=== PATIENT | female | born 1965 | race African-American/Black ===

== ENCOUNTER 2016-02-11 18:28 | Emergency (ER) | payer OTHER ==
[~2016-02-11 18:28] MED LIST: ACET325T9 PO; ANTIDEPRESSANT; CITA20TA9 PO; DICL100T PO; HYDR-2666 PO; HYDR25CA75 PO; HYDR25TA PO; HYDR25TA9 PO; IBUP200T58 PO; LEVE500T56 PO; LISI10TA2 PO; LOPRESSOR; LORA10TA3 PO; PANT40TA5 PO; RISP3TAB3 PO; TRAZ150T55 PO; ZIPR20CA2 PO
[2016-02-11 19:46] VITALS: BP 181/93
[2016-02-11] MEDS ORDERED: ASPIRIN 325 MG TABLET PO ONE (20:15)
--- NOTE | 2016-02-11 20:15 | PHYS DOC ---
Past Medical History Past Medical History: Anxiety, Bipolar, CHF, Hypertension, Schizophrenia Additional Past Medical Histor: schitzophrenia Past Surgical History: Hysterectomy Alcohol Use: None Drug Use: None Adult General Chief Complaint Chief Complaint: LOWER EXT PAIN HPI HPI Patient is a 50 year old female presents the emergency department today with complaint of chest pain that began earlier today as well as ankle swelling. Patient reports that the chest pain is primarily exertional in nature. She denies shortness of breath. She denies radiation of pain. She reports some nausea without vomiting with the chest pain. Patient is unsure as to whether she has a history of heart disease or not. She does have an established history of hypertension. She does report primary relatives in the family with a history of heart disease at the age of 50. Patient does not have a primary care doctor. Patient does have an established history of schizophrenia. Patient does not present as a reliable source of history. Review of Systems Review of Systems Constitutional: Denies fever or chills [] Eyes: Denies change in visual acuity, redness, or eye pain [] HENT: Denies nasal congestion or sore throat [] Respiratory: Denies cough or shortness of breath [] Cardiovascular: No additional information not addressed in HPI [] GI: Denies abdominal pain, nausea, vomiting, bloody stools or diarrhea [] : Denies dysuria or hematuria [] Musculoskeletal: Denies back pain or joint pain [] Integument: Denies rash or skin lesions [] Neurologic: Denies headache, focal weakness or sensory changes [] Endocrine: Denies polyuria or polydipsia [] Current Medications Current Medications Current Medications Medications (Trade) Dose Ordered Sig/[facility] Start Time Stop Time Status Last Admin Dose Admin Aspirin (Rosita Aspirin) 325 mg 1X ONCE 02/11/16 20:15 02/11/16 20:24 DC 02/11/16 21:06 325 MG Magnesium Oxide (Magnesium Oxide) 400 mg 1X ONCE 02/11/16 22:00 02/11/16 22:01 DC 02/11/16 21:59 400 MG Potassium Chloride (Klor-Con) 40 meq 1X ONCE 02/11/16 22:00 02/11/16 22:01 DC 02/11/16 21:58 40 MEQ Allergies Allergies Allergies Coded Allergies Type Severity Reaction Last Updated Verified No Known Drug Allergies 12/31/15 No Physical Exam Physical Exam Constitutional: Well developed, well nourished, no acute distress, non-toxic appearance. [] HENT: Normocephalic, atraumatic, bilateral external ears normal, oropharynx moist, no oral exudates, nose normal. [] Eyes: PERRLA, EOMI, conjunctiva normal, no discharge. [] Neck: Normal range of motion, no tenderness, supple, no stridor. [] Cardiovascular:Heart rate regular rhythm, no murmur [] Lungs & Thorax: Bilateral breath sounds clear to auscultation [] Abdomen: Bowel sounds normal, soft, no tenderness, no masses, no pulsatile masses. [] Skin: Warm, dry, no erythema, no rash. [] Back: No tenderness, no CVA tenderness. [] Extremities: No tenderness, no cyanosis, no clubbing, ROM intact, no edema. [] Neurologic: Alert and oriented X 3, normal motor function, normal sensory function, no focal deficits noted. [] Psychologic: Affect normal, judgement normal, mood normal. [] Current Patient Data Vital Signs Vital Signs Date Time Temp Pulse Resp B/P Pulse Ox O2 Delivery O2 Flow Rate FiO2 02/11/16 19:46 97.8 63 20 98 Room Air 97.8 Lab Values Laboratory Tests Test 02/11/16 20:45 White Blood Count 4.0x10^3/uL (4.0-11.0) Red Blood Count 4.42x10^6/uL (3.50-5.40) Hemoglobin 12.0g/dL (12.0-15.5) Hematocrit 37.7% (36.0-47.0) Mean Corpuscular Volume 85fL (79-100) Mean Corpuscular Hemoglobin 27pg (25-35) Mean Corpuscular Hemoglobin Concent 32g/dL (31-37) Red Cell Distribution Width 14.5% (11.5-14.5) Platelet Count 182x10^3/uL (140-400) Neutrophils (%) (Auto) 49% (31-73) Lymphocytes (%) (Auto) 40% (24-48) Monocytes (%) (Auto) 9% (0-9) Eosinophils (%) (Auto) 1% (0-3) Basophils (%) (Auto) 1% (0-3) Neutrophils # (Auto) 1.9x10^3uL (1.8-7.7) Lymphocytes # (Auto) 1.6x10^3/uL (1.0-4.8) Monocytes # (Auto) 0.4x10^3/uL (0.0-1.1) Eosinophils # (Auto) 0.0x10^3/uL (0.0-0.7) Basophils # (Auto) 0.0x10^3/uL (0.0-0.2) Prothrombin Time 14.8SEC (11.7-14.0) H Prothrombin Time INR 1.2 (0.8-1.1) H Sodium Level 133mmol/L (136-145) L Potassium Level 3.3mmol/L (3.5-5.1) L Chloride Level 97mmol/L (98-107) L Carbon Dioxide Level 27mmol/L (21-32) Anion Gap 9 (6-14) Blood Urea Nitrogen 5mg/dL (7-20) L Creatinine 0.8mg/dL (0.6-1.0) Estimated GFR (Cockcroft-Gault) 92.6 Glucose Level 98mg/dL (70-99) Calcium Level 9.0mg/dL (8.5-10.1) Magnesium Level 1.4mg/dL (1.8-2.4) L Total Bilirubin 0.6mg/dL (0.2-1.0) Direct Bilirubin 0.3mg/dL (0.0-0.2) H Aspartate Amino Transferase (AST) 23U/L (15-37) Alanine Aminotransferase (ALT) 28U/L (14-59) Alkaline Phosphatase 92U/L (46-116) Creatine Kinase 87U/L (26-192) Creatine Kinase MB (Mass) 1.6ng/mL (0.0-3.6) Creatine Kinase MB Relative Index 1.8% (0-4) Troponin I Quantitative < 0.017ng/mL (0.000-0.055) CZ-Ddv-S-Type Natriuretic Peptide 117pg/mL (0-124) Total Protein 7.3g/dL (6.4-8.2) Albumin 3.8g/dL (3.4-5.0) Lipase 223U/L (73-393) Laboratory Tests 02/11/16 20:45 Laboratory Tests 02/11/16 20:45 EKG EKG EKG (my read): sinus rhythm, rate 62, borderline LAD, intervals wnl, no acute ischemic changes Radiology/Procedures Radiology/Procedures CXR (my read): No acute abnormality Course & Med Decision Making Course & Med Decision Making Based on patient's history of schizophrenia, as well as a history of hypertension, her age and the ethnicity, she presents at higher risk of ACS. Discharge nurse has been informed of this and patient will be moved to the acute side of the emergency department. Patient seen and examined with MARLON Francois. In brief, this is a 50 year old female who presents with LE pain and atypical chest pain. Low suspicion for ACS , however will check EKG, CXR, labs. EKG and CXR ok per my read. Labs notable for multiple minor electrolyte abnormalities; oral potassium and magnesium replacement ordered. Troponin wnl; given duration of chest pain, this is sufficient to r/o NV. Discussed results with patient and son; patient feeling better at this time. Discussed importance of following up with PCP. Patient discharged home with instructions for follow up, return precautions. Dragon Disclaimer Dragon Disclaimer This electronic medical record was generated, in whole or in part, using a voice recognition dictation system. Departure Departure Impression: Primary Impression: Chest pain Disposition: HOME, SELF-CARE Condition: IMPROVED Referrals: NO PCP (PCP) CLAYTON FRANCOIS Feb 11, 2016 20:15 ABHI GIFFORD MD Feb 12, 2016 01:21
[2016-02-11 20:56] LABS: BASO % 1 % (0-3); EOS % 1 % (0-3); HEMATOCRIT 37.7 % (36.0-47.0); LYMPH # 1.6 x10^3/uL (1.0-4.8); LYMPH % 40 % (24-48); MEAN CORPUSCULAR HEMOGLOBIN 27 pg (25-35); MEAN CORPUSCULAR HGB CONC 32 g/dL (31-37); MEAN CORPUSCULAR VOLUME 85 fL (79-100); MONO % 9 % (0-9); NEUT % 49 % (31-73); PLATELET COUNT 182 x10^3/uL (140-400); RED BLOOD COUNT 4.42 x10^6/uL (3.50-5.40); RED CELL DISTRIBUTION WIDTH 14.5 % (11.5-14.5)
[2016-02-11 21:05] LABS: INR 1.2 (0.8-1.1); PROTHROMBIN TIME PATIENT 14.8 SEC (11.7-14.0)
[2016-02-11 21:06] LABS: CREATININE 0.8 mg/dL (0.6-1.0); GFR 92.6; POTASSIUM 3.3 mmol/L (3.5-5.1)
[2016-02-11 21:12] LABS: ALBUMIN 3.8 g/dL (3.4-5.0); DIRECT BILIRUBIN 0.3 mg/dL (0.0-0.2); MAGNESIUM 1.4 mg/dL (1.8-2.4); TOTAL BILIRUBIN 0.6 mg/dL (0.2-1.0); TOTAL PROTEIN 7.3 g/dL (6.4-8.2)
[2016-02-11 21:19] LABS: CKMB INDEX 1.8 % (0-4); CKMB MASS 1.6 ng/mL (0.0-3.6)
[2016-02-11] MEDS ORDERED: MAGNESIUM OXIDE 400 MG TABLET PO ONE (22:00)
[2016-02-11] MEDS ORDERED: POTASSIUM CHLORIDE 20 MEQ TABLET.ER. PO ONE (22:00)
--- NOTE | 2016-02-12 06:43 | EKG ---
[facility] [address] [place] [address] Test Date: 2016-02-11 Test Time: 20:31:22 Pat Name: MEREDITH FLORES Department: Room: Gender: F Post Form Remover: : 1965 Requested By: CLAYTON FRANCOIS Order Number: [id number] Reading MD: Monse De Jesus Measurements Intervals [place] Rate: 62 P: 0 AR: 180 QRS: -3 QRSD: 88 T: 24 QT: 448 QTc: 457 Interpretive Statements SINUS RHYTHM NORMAL EKG Electronically Signed On 02-13-2016 0:26:43 DEHYDRATOR TENDER by Monse De Jesus
--- NOTE | 2016-02-12 08:40 | RAD ---
Portable chest, 02/11/2016: History: Chest pain Comparison is made to a study from 01/27/2016. The heart size and pulmonary vascularity are normal. No pulmonary infiltrates are seen. There is no evidence of pleural fluid. IMPRESSION: No significant abnormality is detected.
== END 2016-02-11 22:01 | disposition home or self-care (01) ==
LOC: ER 18:28
DX: R07.89 Other chest pain (principal); M79.89 Other specified soft tissue disorders; R11.2 Nausea with vomiting, unspecified; I11.0 Hypertensive heart disease with heart failure; I50.9 Heart failure, unspecified; F31.9 Bipolar disorder, unspecified; F20.9 Schizophrenia, unspecified; Z90.710 Acquired absence of both cervix and uterus
CPT/HCPCS: 36415; 71010; 80048; 80076; 82553; 83690; 83735; 83880; 84484; 85027; 85610; 93005; 99285-25

== ENCOUNTER 2016-02-28 23:48 | Emergency (ER) | payer OTHER ==
[~2016-02-28] VITALS: Ht 162.6 cm; Wt 85.3 kg
[2016-02-29] MEDS ORDERED: DICY10CA53 PO (00:25)
--- NOTE | 2016-02-29 00:25 | PHYS DOC ---
Past Medical History Past Medical History: Anxiety, Bipolar, CHF, Hypertension, Schizophrenia Additional Past Medical Histor: schitzophrenia Past Surgical History: Hysterectomy Alcohol Use: None Drug Use: None Adult General Chief Complaint Chief Complaint: ABDOMINAL PAIN HPI HPI Patient is a 51 year old female who presents with abdominal cramping that started earlier tonight. Patient states that the symptoms came on suddenly. The patient states that the cramping is located across her abdomen. Patient denies any radiation of pain. Patient rates her pain as 7 out of 10. Patient has not had any associated fever, nausea, vomiting, bloody stools, diarrhea, or constipation. Patient has not taken any medications to help with her symptoms. Patient denies any known exacerbating factors for her pain. Patient has well- documented history of mental illness. Patient denies any suicidal or homicidal ideation. Review of Systems Review of Systems Constitutional: Denies fever or chills [] Eyes: Denies change in visual acuity, redness, or eye pain [] HENT: Denies nasal congestion or sore throat [] Respiratory: Denies cough or shortness of breath [] Cardiovascular: No additional information not addressed in HPI [] GI: Abdominal pain, denies nausea, vomiting, bloody stools or diarrhea [] : Denies dysuria or hematuria [] Musculoskeletal: Denies back pain or joint pain [] Integument: Denies rash or skin lesions [] Neurologic: Denies headache, focal weakness or sensory changes [] Endocrine: Denies polyuria or polydipsia [] Current Medications Current Medications Current Medications Medications (Trade) Dose Ordered Sig/[facility] Start Time Stop Time Status Last Admin Dose Admin Dicyclomine HCl (Bentyl) 20 mg 1X ONCE 02/29/16 00:30 02/29/16 00:31 DC 02/29/16 00:24 20 MG Famotidine (Pepcid) 20 mg 1X ONCE 02/29/16 00:30 02/29/16 00:31 DC 02/29/16 00:25 20 MG Allergies Allergies Allergies Coded Allergies Type Severity Reaction Last Updated Verified No Known Drug Allergies 12/31/15 No Physical Exam Physical Exam Constitutional: Well developed, well nourished, no acute distress, non-toxic appearance. [] HENT: Normocephalic, atraumatic, bilateral external ears normal, oropharynx moist, no oral exudates, nose normal. [] Eyes: PERRLA, EOMI, conjunctiva normal, no discharge. [] Neck: Normal range of motion, no tenderness, supple, no stridor. [] Cardiovascular:Heart rate regular rhythm, no murmur [] Lungs & Thorax: Bilateral breath sounds clear to auscultation [] Abdomen: Bowel sounds normal, soft, no tenderness, no masses, no pulsatile masses. [] Skin: Warm, dry, no erythema, no rash. [] Back: No tenderness, no CVA tenderness. [] Extremities: No tenderness, no cyanosis, no clubbing, ROM intact, no edema. [] Neurologic: Alert and oriented X 3, normal motor function, normal sensory function, no focal deficits noted. [] Current Patient Data Vital Signs Vital Signs Date Time Temp Pulse Resp B/P Pulse Ox O2 Delivery O2 Flow Rate FiO2 02/28/16 23:50 98.0 69 20 171/89 96 Room Air 98.0 EKG EKG Not performed [] Radiology/Procedures Radiology/Procedures Not performed [] Course & Med Decision Making Course & Med Decision Making Pertinent Labs and Imaging studies reviewed. (See chart for details) Patient's exam was benign. Patient's vital signs are stable. The patient was treated with Bentyl and Pepcid in the emergency department. The patient's symptoms appear consistent with dyspepsia. Advised return to the emergency department for any worsening symptoms and recommended follow-up in 2-3 days a primary doctor. Patient voiced understanding and in agreement with treatment plan. Dragon Disclaimer Dragon Disclaimer This electronic medical record was generated, in whole or in part, using a voice recognition dictation system. Departure Departure Impression: Primary Impression: Epigastric abdominal pain Disposition: 01 HOME, SELF-CARE Condition: GOOD Referrals: NO PCP (PCP) Patient Instructions: Abdominal Pain (Nonspecific) Additional Instructions: Follow-up with your primary doctor in the next 3 days for follow-up of your symptoms. Return to emergency department for any worsening symptoms. Scripts Dicyclomine Hcl (Bentyl)10 Mg Capsule1 Cap PO TID PRN SEE COMMENTS #30 CAP Ref 1 Take as needed for abdominal cramps. Prov:HANNA AGUERO MD 02/29/16 HANNA AGUERO MD Feb 29, 2016 00:25
[2016-02-29] MEDS ORDERED: DICYCLOMINE HCL 10 MG CAPSULE PO ONE (00:30)
[2016-02-29] MEDS ORDERED: FAMOTIDINE 20 MG TABLET. PO ONE (00:30)
[2016-02-29 01:00] VITALS: BP 159/79
== END 2016-02-29 01:05 | disposition home or self-care (01) ==
LOC: ER 23:48
DX: R10.13 Epigastric pain (principal); F41.9 Anxiety disorder, unspecified; I11.0 Hypertensive heart disease with heart failure; I50.9 Heart failure, unspecified; F20.9 Schizophrenia, unspecified; F31.9 Bipolar disorder, unspecified; Z90.710 Acquired absence of both cervix and uterus
CPT/HCPCS: 99283

== ENCOUNTER 2016-12-22 05:42 | Emergency (ER) | payer SELFPAY ==
[~2016-12-22] VITALS: Ht 165.1 cm; Wt 90.3 kg
[~2016-12-22 05:42] MED LIST changes: +DICY10CA53 PO; -HYDR-2666 PO; +HYDR-2758 PO; +LISI-334 PO; +POTA20TA82 PO; +TRAZ150T49 PO; -TRAZ150T55 PO
[2016-12-22] MEDS ORDERED: LISINOPRIL 10 MG TABLET PO ONE (06:30)
[2016-12-22 06:40] VITALS: BP 184/96
--- NOTE | 2016-12-22 07:14 | PHYS DOC ---
Past Medical History Past Medical History: Anxiety, Bipolar, CHF, Hypertension, Schizophrenia Additional Past Medical Histor: schitzophrenia Past Surgical History: Hysterectomy Alcohol Use: None Drug Use: None Adult General Chief Complaint Chief Complaint: GI PROBLEM HPI HPI Patient is a 51 year old -[place] female with history of bipolar and schizophrenia presents with sensation of water or fluid dripping in her stomach. Patient first noticed symptoms 24 hours ago. She denies chest pain, palpitations, shortness of breath. Denies abdominal pain, flank pain. No nausea , vomiting, or diarrhea. No fevers, chills or sweats. No other acute symptoms or complaints. Of note, patient's been noncompliant with all her medications including blood pressure medications for the past 30 days. She states she lost healthcare insurance but is process rectifying this and should receive her insurance card in the mail in the next few days. Patient's blood pressure is noted to be elevated, 215/100. [] Review of Systems Review of Systems Review symptoms as per history of present illness. All other review symptoms are negative.ia [] All other systems were reviewed and found to be within normal limits, except as documented in this note. Current Medications Current Medications Current Medications Medications (Trade) Dose Ordered Sig/[facility] Start Time Stop Time Status Last Admin Dose Admin Lisinopril (Prinivil) 20 mg 1X ONCE 12/22/16 06:30 12/22/16 06:31 DC 12/22/16 06:17 20 MG Allergies Allergies Allergies Coded Allergies Type Severity Reaction Last Updated Verified No Known Drug Allergies 12/31/15 No Physical Exam Physical Exam Constitutional: Well developed, well nourished, no acute distress, non-toxic appearance. [] HENT: Normocephalic, atraumatic, bilateral external ears normal, oropharynx moist, no oral exudates, nose normal. [] Eyes: PERRLA, EOMI, conjunctiva normal, no discharge. [] Neck: Normal range of motion, no tenderness, supple, no stridor. [] Cardiovascular:Heart rate regular rhythm, no murmur [] Lungs & Thorax: Bilateral breath sounds clear to auscultation [] Abdomen: Bowel sounds normal, soft, no tenderness. [] Skin: Warm, dry. [] Back: No tenderness. [] Extremities: No tenderness. [] Neurologic: Alert and oriented X 3, normal motor function, normal sensory function, no focal deficits noted. [] Psychologic: Affect normal, judgement normal, mood normal. [] Current Patient Data Vital Signs Vital Signs Date Time Temp Pulse Resp B/P (MAP) Pulse Ox O2 Delivery O2 Flow Rate FiO2 12/22/16 06:40 86 18 184/96 (125) 98 Room Air 12/22/16 05:51 98.5 98.5 EKG EKG [] Radiology/Procedures Radiology/Procedures [] Course & Med Decision Making Course & Med Decision Making Pertinent Labs and Imaging studies reviewed. (See chart for details) [Patient with unusual GI symptoms, I suspect may be related to indigestion. EKG reviewed. Patient given home dose of blood pressure medication and instructed to fill Rx later today. ] Dragon Disclaimer Dragon Disclaimer This electronic medical record was generated, in whole or in part, using a voice recognition dictation system. Departure Departure Impression: Primary Impression: GI problem Additional Impression: Hypertension Disposition: 01 HOME, SELF-CARE Condition: GOOD Patient Instructions: Indigestion, [id number], Hypertension, [id number] Additional Instructions: Please fill Lisinopril Presrcition and take next dose tomorrow morning. Lisinopril is available at [facility] for $4 without insurance. Problem Qualifiers NAIMA CHISHOLM DO Dec 22, 2016 07:14
--- NOTE | 2016-12-23 07:12 | EKG ---
[facility] [address] [place] [address] Test Date: 2016-12-22 Test Time: 06:11:49 Pat Name: MEREDITH FLORES Department: Room: Gender: F Classification Clerk: : 1965 Requested By: NAIMA CHISHOLM Order Number: [id number] Reading MD: Jarvis Kay MD Measurements Intervals [place] Rate: 71 P: 21 ME: 156 QRS: -5 QRSD: 86 T: 6 QT: 426 QTc: 463 Interpretive Statements SINUS RHYTHM Electronically Signed On 12-23-2016 15:12:17 SOUND DESIGNER by Jarvis Kay MD
== END 2016-12-22 06:40 | disposition home or self-care (01) ==
LOC: ER 05:42
DX: K92.89 Other specified diseases of the digestive system (principal); I10 Essential (primary) hypertension; F20.9 Schizophrenia, unspecified; I11.0 Hypertensive heart disease with heart failure; I50.9 Heart failure, unspecified; F31.9 Bipolar disorder, unspecified; F41.9 Anxiety disorder, unspecified; Z91.19 Patient's noncompliance with other medical treatment and regimen
CPT/HCPCS: 93005; 99283-25

== ENCOUNTER 2016-12-24 22:17 | Emergency (ER) | payer SELFPAY ==
[~2016-12-24] VITALS: Ht 162.6 cm; Wt 104.3 kg
[2016-12-24] MEDS ORDERED: IV NORMAL SALINE 1000ML BAG 1,000 ML IV SCH (22:52)
--- NOTE | 2016-12-24 22:58 | PHYS DOC ---
Past Medical History Past Medical History: Anxiety, Bipolar, CHF, Hypertension, Schizophrenia Additional Past Medical Histor: schitzophrenia Past Surgical History: Hysterectomy Alcohol Use: None Drug Use: None Adult General Chief Complaint Chief Complaint: ABDOMINAL PAIN HPI HPI 51-year-old female with a history of anxiety, bipolar disease, hypertension, CHF , schizophrenia and prior hysterectomy now presents to the emergency department complaining of abdominal pain. Patient states she has mid abdominal pain and she is concerned about it. Been intermittent for a long time. Her pain is now improved. She think she needs an x-ray of her abdomen. No fevers chills sweats or shaking chills. Normal bowel bladder habits. No vomiting or diarrhea. patient denies chronic abdominal problems Review of Systems Review of Systems Constitutional: Denies fever or chills [] Eyes: Denies change in visual acuity, redness, or eye pain [] HENT: Denies nasal congestion or sore throat [] Respiratory: Denies cough or shortness of breath [] Cardiovascular: No additional information not addressed in HPI [] GI: Denies abdominal pain, nausea, vomiting, bloody stools or diarrhea [] : Denies dysuria or hematuria [] Musculoskeletal: Denies back pain or joint pain [] Integument: Denies rash or skin lesions [] Neurologic: Denies headache, focal weakness or sensory changes [] Endocrine: Denies polyuria or polydipsia [] All other systems were reviewed and found to be within normal limits, except as documented in this note. Current Medications Current Medications Current Medications Medications (Trade) Dose Ordered Sig/[facility] Start Time Stop Time Status Last Admin Dose Admin Info (Do NOT chart on this entry -- for MONITORING) 1 each PRN DAILY PRN 12/24/16 23:15 12/25/16 00:20 DC Iohexol (Omnipaque 300 Mg/ml) 75 ml 1X ONCE 12/24/16 23:15 12/24/16 23:16 DC 12/24/16 23:44 75 ML Ketorolac Tromethamine (Toradol) 30 mg 1X ONCE 12/24/16 23:00 12/24/16 23:13 DC 12/24/16 23:12 30 MG Sodium Chloride 1,000 ml @ 100 mls/hr Q10H 12/24/16 22:52 12/24/16 22:55 DC Allergies Allergies Allergies Coded Allergies Type Severity Reaction Last Updated Verified No Known Drug Allergies 12/31/15 No Physical Exam Physical Exam 51-year-old female alert communicative cooperative and appropriate. She is mildly anxious but is in no acute distress. Clear lungs regular rate and rhythm no tachycardia benign abdomen nontender no guarding or rebound no mass or megaly normal bowel sounds no skin changes. Normal extremities and nonfocal neurologic exam Constitutional: Well developed, well nourished, no acute distress, non-toxic appearance. [] HENT: Normocephalic, atraumatic, bilateral external ears normal, oropharynx moist, no oral exudates, nose normal. [] Eyes: PERRLA, EOMI, conjunctiva normal, no discharge. [] Neck: Normal range of motion, no tenderness, supple, no stridor. [] Cardiovascular:Heart rate regular rhythm, no murmur [] Lungs & Thorax: Bilateral breath sounds clear to auscultation [] Abdomen: Bowel sounds normal, soft, no tenderness, no masses, no pulsatile masses. [] Skin: Warm, dry, no erythema, no rash. [] Back: No tenderness, no CVA tenderness. [] Extremities: No tenderness, no cyanosis, no clubbing, ROM intact, no edema. [] Neurologic: Alert and oriented X 3, normal motor function, normal sensory function, no focal deficits noted. [] Psychologic: Affect consistent with mild anxiety, judgement normal, mood normal. [] Current Patient Data Vital Signs Vital Signs Date Time Temp Pulse Resp B/P (MAP) Pulse Ox O2 Delivery O2 Flow Rate FiO2 12/24/16 23:00 84 171/85 (113) 96 Room Air 12/24/16 22:52 98.2 16 98.2 Lab Values Laboratory Tests Test 12/24/16 22:39 12/24/16 22:45 Urine Collection Type Unknown Urine Color Sophia Urine Clarity Hazy Urine pH 6.0 Urine Specific [place] >=1.030 Urine Protein Negative mg/dL (NEG-TRACE) Urine Glucose (UA) Negative mg/dL (NEG) Urine Ketones (Stick) Negative mg/dL (NEG) Urine Blood Negative (NEG) Urine Nitrite Negative (NEG) Urine Bilirubin Small (NEG) Urine Urobilinogen Dipstick 1.0 mg/dL (0.2 mg/dL) Urine Leukocyte Esterase Small (NEG) Urine RBC Occ /HPF (0-2) Urine WBC 11-20 /HPF (0-4) Urine Squamous Epithelial Cells Mod /LPF Urine Bacteria Many /HPF (0-FEW) Urine Mucus Marked /LPF White Blood Count 7.4 x10^3/uL (4.0-11.0) Red Blood Count 4.66 x10^6/uL (3.50-5.40) Hemoglobin 12.6 g/dL (12.0-15.5) Hematocrit 38.9 % (36.0-47.0) Mean Corpuscular Volume 83 fL (79-100) Mean Corpuscular Hemoglobin 27 pg (25-35) Mean Corpuscular Hemoglobin Concent 33 g/dL (31-37) Red Cell Distribution Width 14.5 % (11.5-14.5) Platelet Count 236 x10^3/uL (140-400) Neutrophils (%) (Auto) 64 % (31-73) Lymphocytes (%) (Auto) 27 % (24-48) Monocytes (%) (Auto) 7 % (0-9) Eosinophils (%) (Auto) 2 % (0-3) Basophils (%) (Auto) 1 % (0-3) Neutrophils # (Auto) 4.7 x10^3uL (1.8-7.7) Lymphocytes # (Auto) 2.0 x10^3/uL (1.0-4.8) Monocytes # (Auto) 0.5 x10^3/uL (0.0-1.1) Eosinophils # (Auto) 0.1 x10^3/uL (0.0-0.7) Basophils # (Auto) 0.1 x10^3/uL (0.0-0.2) Sodium Level 139 mmol/L (136-145) Potassium Level 3.9 mmol/L (3.5-5.1) Chloride Level 103 mmol/L (98-107) Carbon Dioxide Level 25 mmol/L (21-32) Anion Gap 11 (6-14) Blood Urea Nitrogen 14 mg/dL (7-20) Creatinine 0.8 mg/dL (0.6-1.0) Estimated GFR (Cockcroft-Gault) 92.2 BUN/Creatinine Ratio 18 (6-20) Glucose Level 110 mg/dL (70-99) H Calcium Level 9.2 mg/dL (8.5-10.1) Total Bilirubin 0.6 mg/dL (0.2-1.0) Aspartate Amino Transferase (AST) 35 U/L (15-37) Alanine Aminotransferase (ALT) 28 U/L (14-59) Alkaline Phosphatase 124 U/L (46-116) H Total Protein 7.4 g/dL (6.4-8.2) Albumin 3.9 g/dL (3.4-5.0) Albumin/Globulin Ratio 1.1 (1.0-1.7) Lipase 185 U/L (73-393) Laboratory Tests 12/24/16 22:45 Laboratory Tests 12/24/16 22:45 EKG EKG [] Radiology/Procedures Radiology/Procedures [] Course & Med Decision Making Course & Med Decision Making Pertinent Labs and Imaging studies reviewed. (See chart for details) Signs and symptoms consistent with exacerbation of anxiety with concern regarding chronic abdominal pain with an unremarkable exam and benign vitals in the emergency department. Full workup negative. She stable on reevaluation. No further workup or treatment indicated at this time patient agrees with outpatient follow-up and strict return precautions given [] Dragon Disclaimer Dragon Disclaimer This electronic medical record was generated, in whole or in part, using a voice recognition dictation system. Departure Departure Impression: Primary Impression: Nonspecific abdominal pain Additional Impression: Anxiety about health Disposition: 01 HOME, SELF-CARE Condition: GOOD Referrals: ART EDWARDS (PCP) Patient Instructions: Abdominal Pain (Nonspecific), Anxiety and Panic Attacks, [id number] Additional Instructions: It is not clear what had been causing your intermittent abdominal pain over the last 2 days. Rest and drink plenty of fluids. Take ibuprofen and Tylenol as needed for discomfort. Follow-up with your doctor tomorrow. Problem Qualifiers JAYDE WRIGHT MD Dec 24, 2016 22:58
[2016-12-24 23:00] VITALS: BP 171/85
[2016-12-24 23:00] LABS: BILIRUBIN,URINE SMALL (NEG); GLUCOSE,URINE NEGATIVE (NEG); NITRITE,URINE NEGATIVE (NEG); PROTEIN,URINE NEGATIVE (NEG-TRACE)
[2016-12-24] MEDS ORDERED: KETOROLAC 30 MG/ML INJ. IV ONE (23:00)
[2016-12-24 23:01] LABS: BASO # 0.1 x10^3/uL (0.0-0.2); BASO % 1 % (0-3); EOS % 2 % (0-3); HEMATOCRIT 38.9 % (36.0-47.0); HEMOGLOBIN 12.6 g/dL (12.0-15.5); LYMPH % 27 % (24-48); MEAN CORPUSCULAR HEMOGLOBIN 27 pg (25-35); MEAN CORPUSCULAR HGB CONC 33 g/dL (31-37); MEAN CORPUSCULAR VOLUME 83 fL (79-100); MONO % 7 % (0-9); NEUT % 64 % (31-73); PLATELET COUNT 236 x10^3/uL (140-400); RED BLOOD COUNT 4.66 x10^6/uL (3.50-5.40); RED CELL DISTRIBUTION WIDTH 14.5 % (11.5-14.5); WHITE BLOOD COUNT 7.4 x10^3/uL (4.0-11.0)
[2016-12-24 23:07] LABS: BACTERIA,URINE MANY /HPF (0-FEW); RBC,URINE OCC /HPF (0-2); SQUAMOUS EPITHELIAL CELL,UR MOD /LPF
[2016-12-24 23:13] LABS: CALCIUM 9.2 mg/dL (8.5-10.1); CREATININE 0.8 mg/dL (0.6-1.0); GFR 92.2; POTASSIUM 3.9 mmol/L (3.5-5.1)
[2016-12-24] MEDS ORDERED: IOHEXOL 300 MG/ML 100ML VIAL. IV ONE (23:15)
[2016-12-24] MEDS ORDERED: CONTRAST GIVEN MC PRN (23:15)
[2016-12-24 23:20] LABS: ALBUMIN 3.9 g/dL (3.4-5.0); ALBUMIN/GLOBULIN RATIO 1.1 (1.0-1.7); TOTAL BILIRUBIN 0.6 mg/dL (0.2-1.0); TOTAL PROTEIN 7.4 g/dL (6.4-8.2)
--- NOTE | 2016-12-25 00:05 | RAD ---
Indication: Right upper quadrant and left lower quadrant pain. TECHNIQUE: CT abdomen and pelvis with 75 mL of Omnipaque 300 with multiplanar reformats. COMPARISON: Previous study from 01/09/2016 FINDINGS: Heart is normal in size. No pericardial or pleural effusion. Clear lung bases. Liver is normal in morphology without focal hepatic lesion. Spleen within normal limits. No radiopaque gallstones. No pericholecystic fluid or gallbladder wall thickening. Pancreas is within normal limits. Adrenal glands show no nodularity. No nephrolithiasis or hydronephrosis. No retroperitoneal or pelvic adenopathy. No bowel obstruction. Normal appendix. Small omental fat-containing umbilical hernia. Uterus not visualized likely surgically absent. No solid adnexal lesions. Bladder is decompressed limiting evaluation. No free pelvic fluid. No suspicious bony lesion. IMPRESSION: No acute findings. No cholelithiasis or imaging evidence of acute cholecystitis. Normal appendix. Electronically signed by: Quoc Watson DO (12/25/2016 12:02 AM) [facility]
== END 2016-12-25 00:20 | disposition home or self-care (01) ==
LOC: ER 22:17
DX: R10.9 Unspecified abdominal pain (principal); F41.9 Anxiety disorder, unspecified; I11.0 Hypertensive heart disease with heart failure; I50.9 Heart failure, unspecified; F20.9 Schizophrenia, unspecified; F31.9 Bipolar disorder, unspecified; Z90.710 Acquired absence of both cervix and uterus
CPT/HCPCS: 36415; 74177; 80053; 81001; 83690; 85025; 96374; 99285; J1885; Q9967

== ENCOUNTER 2016-12-27 23:46 | Emergency (ER) | payer SELFPAY ==
[~2016-12-27] VITALS: Ht 162.6 cm; Wt 104.3 kg
[2016-12-27 23:50] VITALS: BP 163/88
--- NOTE | 2016-12-28 00:04 | PHYS DOC ---
Past Medical History Past Medical History: Anxiety, Bipolar, CHF, Hypertension, Schizophrenia Additional Past Medical Histor: schitzophrenia Past Surgical History: Hysterectomy Alcohol Use: None Drug Use: None Adult General Chief Complaint Chief Complaint: COUGH HPI HPI Patient is a 51 year old female with history of anxiety bipolar hypertension and schizophrenia who presents today complaining of nasal congestion or cough and a sore throat for 2 days. Patient denies any fever. Review of Systems Review of Systems Constitutional: See history of present illness Eyes: Denies change in visual acuity, redness, or eye pain [] HENT: nasal congestion and sore throat [] Respiratory: Reports cough denies shortness of breath [] Cardiovascular: No additional information not addressed in HPI [] GI: Denies abdominal pain, nausea, vomiting, bloody stools or diarrhea [] : Denies dysuria or hematuria [] Musculoskeletal: Denies back pain or joint pain [] Integument: Denies rash or skin lesions [] Neurologic: Denies headache, focal weakness or sensory changes [] All other systems were reviewed and found to be within normal limits, except as documented in this note. Allergies Allergies Allergies Coded Allergies Type Severity Reaction Last Updated Verified No Known Drug Allergies 12/31/15 No Physical Exam Physical Exam Constitutional: Well developed, well nourished, no acute distress, non-toxic appearance. [] HENT: Normocephalic, atraumatic, bilateral external ears normal, oropharynx moist, no oral exudates, nose normal. [] Eyes: PERRLA, EOMI, conjunctiva normal, no discharge. [] Neck: Normal range of motion, no tenderness, supple, no stridor. [] Cardiovascular:Heart rate regular rhythm, no murmur [] Lungs & Thorax: Bilateral breath sounds clear to auscultation [] Abdomen: Bowel sounds normal, soft, no tenderness, no masses, no pulsatile masses. [] Skin: Warm, dry, no erythema, no rash. [] Back: No tenderness, no CVA tenderness. [] Extremities: No tenderness, no cyanosis, no clubbing, ROM intact, no edema. [] Neurologic: Alert and oriented X 3, normal motor function, normal sensory function, no focal deficits noted. [] Psychologic: Affect normal, judgement normal, mood normal. [] Current Patient Data Vital Signs Vital Signs Date Time Temp Pulse Resp B/P (MAP) Pulse Ox O2 Delivery O2 Flow Rate FiO2 12/27/16 23:50 98.2 92 16 97 Room Air 98.2 EKG EKG [] Radiology/Procedures Radiology/Procedures [] Course & Med Decision Making Course & Med Decision Making Pertinent Labs and Imaging studies reviewed. (See chart for details) Patient is in the ED with complaints of upper respiratory infection symptoms including cough and running nose and sore throat. Patient was seen in the ED 2 days ago for abdominal pain and had an acute abdominal series xray and labs which were negative. Her lungs are clear , strep test is negative. She'll be discharged with albuterol inhaler and Tessalon Perles and prednisone. She was instructed to follow-up with her own doctor on Thursday. Tulio Disclaimer Tulio Disclaimer This electronic medical record was generated, in whole or in part, using a voice recognition dictation system. Departure Departure Impression: Primary Impression: Upper respiratory disease Additional Impressions: Cough Pharyngitis Disposition: HOME, SELF-CARE Condition: STABLE Referrals: ART EDWARDS (PCP) follow up with your doctor next week on Thursday Patient Instructions: Cough, Adult, [id number], Upper Respiratory Infection, Adult, Viral Pharyngitis Additional Instructions: You were seen with symptoms consistent of an upper respiratory infection. Your strep test is negative. Please take the prescribed medicines as ordered. Follow -up with your own doctor on Thursday Scripts Prednisone (PREDNISONE) 50 Mg Tablet 1 TAB PO DAILY, #5 TAB Prov: DAVE MARIE APRN 12/28/16 Benzonatate (TESSALON PERLE) 100 Mg Capsule 1 CAP PO TID, #30 CAP Prov: DAVE MARIE APRN 12/28/16 Albuterol Sulfate (Ventolin Hfa) 8 Gm Hfa.aer.ad 1 GM IH Q6-8HRS Y for COUGH, #1 INHALER Prov: DAVE MARIE APRN 12/28/16 Problem Qualifiers Additional Impressions: Pharyngitis Pharyngitis/tonsillitis etiology: unspecified etiology Qualified Codes: J02.9 - Acute pharyngitis, unspecified DAVE MARIE APRN Dec 28, 2016 00:04
[2016-12-28] MEDS ORDERED: PRED50TA PO (00:18)
[2016-12-28] MEDS ORDERED: BENZ100C PO (00:18)
[2016-12-28] MEDS ORDERED: ALBU8HFA2 IH (00:18)
[2016-12-28 08:44] LABS: NEGATIVE OBC STREP NEG; POSITIVE OBC STREP POS
== END 2016-12-28 00:22 | disposition home or self-care (01) ==
LOC: ER 23:46
DX: J06.9 Acute upper respiratory infection, unspecified (principal); F20.9 Schizophrenia, unspecified; F31.9 Bipolar disorder, unspecified; I11.0 Hypertensive heart disease with heart failure; I50.9 Heart failure, unspecified
CPT/HCPCS: 87070; 87880; 99283

== ENCOUNTER 2016-12-31 00:38 | Emergency (ER) | payer SELFPAY ==
[~2016-12-31] VITALS: Ht 162.6 cm; Wt 104.3 kg
[~2016-12-31 00:38] MED LIST changes: +ALBU8HFA2 IH; +BENZ100C PO; +PRED50TA PO
--- NOTE | 2016-12-31 00:53 | PHYS DOC ---
Past Medical History Past Medical History: Anxiety, Bipolar, CHF, Hypertension, Schizophrenia Additional Past Medical Histor: schitzophrenia Past Surgical History: Hysterectomy Additional Information: non smoker Alcohol Use: None Drug Use: None Adult General Chief Complaint Chief Complaint: ANKLE PROBLEM HPI HPI Patient is a 51 year old female who presents with swelling of both of her feet and ankles. She was on Lasix 20 mg every day and she ran out about month ago. States she doesn't have her medical card hasn't been able to get back into her doctor. She does however still have lisinopril to take for her high blood pressure. She states the last 3 days she noticed increased swelling of feet and ankles and That her feet won't fit in her shoes. She proceeded to come in [facility] for evaluation of that. No chest pain, no difficulty breathing. No recent travel. No abdominal pain complaints. No nausea vomiting diarrhea. No pain in her legs. Review of Systems Review of Systems Constitutional: Denies fever or chills Eyes: Denies change in visual acuity, redness, or eye pain HENT: Denies nasal congestion or sore throat Respiratory: Denies cough or shortness of breath Cardiovascular: No chest pain GI: Denies abdominal pain, nausea, vomiting, bloody stools or diarrhea : Denies dysuria or hematuria Musculoskeletal: Denies back pain or joint pain; swelling of bilateral feet. Integument: Denies rash or skin lesions Neurologic: Denies headache, focal weakness or sensory changes Endocrine: Denies polyuria or polydipsia All other systems were reviewed and found to be within normal limits, except as documented in this note. Current Medications Current Medications Current Medications Medications (Trade) Dose Ordered Sig/Thomas Start Time Stop Time Status Last Admin Dose Admin Furosemide (Lasix) 20 mg 1X ONCE 12/31/16 02:00 12/31/16 02:01 Allergies Allergies Allergies Coded Allergies Type Severity Reaction Last Updated Verified No Known Drug Allergies 12/31/15 No Physical Exam Physical Exam Constitutional: Well developed, well nourished, no acute distress, non-toxic appearance. HENT: Normocephalic, atraumatic, bilateral external ears normal, oropharynx moist, no oral exudates, nose normal. Eyes: PERRLA, EOMI, conjunctiva normal, no discharge. Neck: Normal range of motion, no tenderness, supple, no stridor. Cardiovascular:Heart rate regular rhythm, no murmur Lungs & Thorax: Bilateral breath sounds clear to auscultation Abdomen: Bowel sounds normal, soft, no tenderness, no masses, no pulsatile masses. Skin: Warm, dry, no erythema, no rash. Back: No tenderness, no CVA tenderness. Extremities: No tenderness, no cyanosis, no clubbing, ROM intact, bilateral nonpitting edema to ankles and feet. No calf pain, swelling or tenderness Neurologic: Alert and oriented X 3, normal motor function, normal sensory function, no focal deficits noted. Psychologic: Affect normal, judgement normal, mood normal. Current Patient Data Vital Signs Vital Signs Date Time Temp Pulse Resp B/P (MAP) Pulse Ox O2 Delivery O2 Flow Rate FiO2 12/31/16 00:54 98.0 84 20 101/58 (72) 97 98.0 Lab Values Laboratory Tests Test 12/31/16 01:09 White Blood Count 4.5 x10^3/uL (4.0-11.0) Red Blood Count 4.80 x10^6/uL (3.50-5.40) Hemoglobin 13.1 g/dL (12.0-15.5) Hematocrit 40.4 % (36.0-47.0) Mean Corpuscular Volume 84 fL (79-100) Mean Corpuscular Hemoglobin 27 pg (25-35) Mean Corpuscular Hemoglobin Concent 32 g/dL (31-37) Red Cell Distribution Width 14.7 % (11.5-14.5) H Platelet Count 250 x10^3/uL (140-400) Neutrophils (%) (Auto) 53 % (31-73) Lymphocytes (%) (Auto) 35 % (24-48) Monocytes (%) (Auto) 8 % (0-9) Eosinophils (%) (Auto) 3 % (0-3) Basophils (%) (Auto) 1 % (0-3) Neutrophils # (Auto) 2.4 x10^3uL (1.8-7.7) Lymphocytes # (Auto) 1.6 x10^3/uL (1.0-4.8) Monocytes # (Auto) 0.4 x10^3/uL (0.0-1.1) Eosinophils # (Auto) 0.1 x10^3/uL (0.0-0.7) Basophils # (Auto) 0.0 x10^3/uL (0.0-0.2) Sodium Level 139 mmol/L (136-145) Potassium Level 3.3 mmol/L (3.5-5.1) L Chloride Level 104 mmol/L (98-107) Carbon Dioxide Level 27 mmol/L (21-32) Anion Gap 8 (6-14) Blood Urea Nitrogen 11 mg/dL (7-20) Creatinine 0.8 mg/dL (0.6-1.0) Estimated GFR (Cockcroft-Gault) 92.2 Glucose Level 118 mg/dL (70-99) H Calcium Level 9.2 mg/dL (8.5-10.1) Laboratory Tests 12/31/16 01:09 Laboratory Tests 12/31/16 01:09 EKG EKG EKG interpreted by myself at 0056 am: NSR, rate 79 leftward axis; no acute ST changes. Course & Med Decision Making Course & Med Decision Making Evaluated patient upon arrival. Will check lab to document urine function. At 0200 am: chemistries, cardiac enzyme and BNP are all normal. Dosed here with Lasix 20 po and rx written. Patient states she has enough Lisinopril at home. I have spoken with the patient and/or caregivers. I have explained the patient' s condition, diagnosis and treatment plan based on the information available to me at this time. I have answered the patient's and/or caregiver's questions and addressed any concerns. The patient and/or caregivers have as good an understanding of the patient's diagnosis, condition and treatment plan as can be expected at this point. The patient's condition is stable and appropriate for discharge from the emergency department. The patient will pursue further outpatient evaluation with the primary care physician or other designated or consulting physician as outlined in the discharge instructions. The patient and/or caregivers are agreeable to this plan of care and follow-up instructions have been explained in detail. The patient and/or caregivers have received these instructions in written format and have expressed an understanding of the discharge instructions. The patient and/or caregivers are aware that any significant change in condition or worsening of symptoms should prompt an immediate return to this or the closest emergency department or a call to 911. Tulio Disclaimer Dragon Disclaimer This electronic medical record was generated, in whole or in part, using a voice recognition dictation system. Departure Departure Impression: Primary Impression: Pedal edema Additional Impression: Medical non-compliance Disposition: HOME, SELF-CARE Condition: STABLE Referrals: ART EDWARDS (PCP) Patient Instructions: Peripheral Edema Additional Instructions: YOUR LAB WAS NORMAL HERE. YOU WERE RESTARTED ON YOUR LASIX. FOLLOW UP SCHEDULED. Scripts Furosemide (LASIX) 20 Mg Tablet 1 TAB PO DAILY, #30 TAB 1 Refill Prov: REUBEN MUHAMMAD MD 12/31/16 Problem Qualifiers REUBEN MUHAMMAD MD Dec 31, 2016 00:53
[2016-12-31 01:15] LABS: BASO % 1 % (0-3); EOS % 3 % (0-3); HEMATOCRIT 40.4 % (36.0-47.0); HEMOGLOBIN 13.1 g/dL (12.0-15.5); LYMPH # 1.6 x10^3/uL (1.0-4.8); LYMPH % 35 % (24-48); MEAN CORPUSCULAR HEMOGLOBIN 27 pg (25-35); MEAN CORPUSCULAR HGB CONC 32 g/dL (31-37); MEAN CORPUSCULAR VOLUME 84 fL (79-100); MONO % 8 % (0-9); NEUT % 53 % (31-73); PLATELET COUNT 250 x10^3/uL (140-400); RED CELL DISTRIBUTION WIDTH 14.7 % (11.5-14.5); WHITE BLOOD COUNT 4.5 x10^3/uL (4.0-11.0)
[2016-12-31 01:27] LABS: CALCIUM 9.2 mg/dL (8.5-10.1); CREATININE 0.8 mg/dL (0.6-1.0); GFR 92.2; POTASSIUM 3.3 mmol/L (3.5-5.1)
[2016-12-31 01:40] LABS: CREATINE KINASE 78 U/L (26-192)
[2016-12-31 01:53] LABS: CKMB MASS < 0.5 ng/mL (0.0-3.6)
[2016-12-31] MEDS ORDERED: FUROSEMIDE 40 MG TABLET. PO ONE (02:00)
[2016-12-31] MEDS ORDERED: FURO-69 PO (02:03)
[2016-12-31 02:17] VITALS: BP 166/90
--- NOTE | 2016-12-31 06:22 | EKG ---
[facility] [address] [place] [address] Test Date: 2016-12-31 Test Time: 00:56:35 Pat Name: MEREDITH FLORES Department: Room: Gender: F [employer]ist: : [id number] Requested By: REUBEN MUHAMMAD Order Number: [id number] Reading MD: Measurements Intervals [place] Rate: 79 P: 28 ND: 156 QRS: -2 QRSD: 88 T: 37 QT: 406 QTc: 472 Interpretive Statements SINUS RHYTHM LEFTWARD AXIS OTHERWISE NORMAL ECG RI6.01 No previous ECG available for comparison
== END 2016-12-31 02:17 | disposition home or self-care (01) ==
LOC: ER 00:38
DX: R60.1 Generalized edema (principal); Z91.14 Patient's other noncompliance with medication regimen; I11.0 Hypertensive heart disease with heart failure; I50.9 Heart failure, unspecified; F20.9 Schizophrenia, unspecified
CPT/HCPCS: 36415; 80048; 82553; 83880; 84484; 85025; 93005; 99285-25

== ENCOUNTER 2017-01-04 03:11 | Inpatient (IN) | payer SELFPAY ==
[~2017-01-04] VITALS: Ht 162.6 cm; Wt 104.3 kg
[2017-01-04] VITALS (7 sets, daily range): BP systolic 100–158; BP diastolic 61–92
[~2017-01-04 03:11] MED LIST changes: +FURO-69 PO
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
[2017-01-04 03:43] LABS: BASO % 1 % (0-3); EOS % 0 % (0-3); HEMATOCRIT 40.7 % (36.0-47.0); HEMOGLOBIN 13.3 g/dL (12.0-15.5); LYMPH # 2.1 x10^3/uL (1.0-4.8); LYMPH % 26 % (24-48); MEAN CORPUSCULAR HEMOGLOBIN 28 pg (25-35); MEAN CORPUSCULAR HGB CONC 33 g/dL (31-37); MEAN CORPUSCULAR VOLUME 85 fL (79-100); MONO % 8 % (0-9); NEUT % 65 % (31-73); PLATELET COUNT 283 x10^3/uL (140-400); RED BLOOD COUNT 4.79 x10^6/uL (3.50-5.40); RED CELL DISTRIBUTION WIDTH 15.7 % (11.5-14.5)
[2017-01-04 03:58] LABS: ANION GAP 9 (6-14); BLOOD UREA NITROGEN 12 mg/dL (7-20); CALCIUM 8.9 mg/dL (8.5-10.1); CARBON DIOXIDE 27 mmol/L (21-32); CHLORIDE 102 mmol/L (98-107); CREATININE 0.8 mg/dL (0.6-1.0); GFR 92.2; GLUCOSE 109 mg/dL (70-99); POTASSIUM 3.5 mmol/L (3.5-5.1); SODIUM 138 mmol/L (136-145)
[2017-01-04 04:00] LABS: NEG OBC SER NEG; POS OBC SER POS
[2017-01-04 04:04] LABS: ALBUMIN 3.7 g/dL (3.4-5.0); ALK PHOS 120 U/L (46-116); ALT (SGPT) 32 U/L (14-59); AST (SGOT) 20 U/L (15-37); DIRECT BILIRUBIN < 0.1 mg/dL (0.0-0.2); TOTAL BILIRUBIN 0.3 mg/dL (0.2-1.0); TOTAL PROTEIN 7.3 g/dL (6.4-8.2)
[2017-01-04 04:07] LABS: BILIRUBIN,URINE SMALL (NEG); GLUCOSE,URINE NEGATIVE (NEG); NITRITE,URINE NEGATIVE (NEG); PH,URINE 6.5; PROTEIN,URINE NEGATIVE (NEG-TRACE)
[2017-01-04 04:10] LABS: INR 1.5 (0.8-1.1)
[2017-01-04 04:13] LABS: CREATINE KINASE 99 U/L (26-192)
[2017-01-04 04:15] LABS: BARBITURATES NEG (NEG); BENZODIAZEPINES NEG (NEG); CANNABINOIDS NEG (NEG); COCAINE NEG (NEG); METHADONE NEG (NEG); OPIATES NEG (NEG); PHENCYCLIDINE NEG (NEG)
[2017-01-04 04:20] LABS: BACTERIA,URINE MANY /HPF (0-FEW); SQUAMOUS EPITHELIAL CELL,UR MANY /LPF; YEAST,URINE PRESENT /HPF
[2017-01-04 04:34] LABS: CKMB MASS < 0.5 ng/mL (0.0-3.6)
[2017-01-04] MEDS ORDERED: CONTRAST GIVEN MC PRN (04:45)
[2017-01-04] MEDS ORDERED: hydrALAZINE 20 MG/ML VIAL. IVP ONE (05:00)
[2017-01-04] MEDS ORDERED: IOHEXOL 300 MG/ML 100ML VIAL. IV ONE (05:00)
--- NOTE | 2017-01-04 05:20 | RAD ---
INDICATION: epgastric/rlq pain; Omni 300, 75ml COMPARISON: December 24, 2016 TECHNIQUE: Axial CT images were obtained through the abdomen and pelvis with intravenous contrast. One or more of the following individualized dose reduction techniques were utilized for this examination: 1. Automated exposure control; 2. Adjustment of the mA and/or kV according to patient size; 3. Use of iterative reconstruction technique. FINDINGS: Elevated right hemidiaphragm. Fat-containing umbilical hernia. Mild calcific atherosclerosis. Liver is mildly low attenuation. Gallbladder appears contracted. No definite peripancreatic edema. Spleen unremarkable. There is some high density foci within the bilateral kidneys without hydronephrosis. Urinary bladder is largely decompressed. The appendix does not appear grossly inflamed. No dilated loops of bowel suggest obstruction. Degenerative changes of spine. Liver appears enlarged. IMPRESSION: 1. No evidence of bowel obstruction or appendicitis. 2. There is some high density foci within the bilateral kidneys. Could be secondary to some excreted contrast within the area but nonobstructive renal stones are also within the differential. 3. The liver appears enlarged and low attenuation. Nonspecific but can be seen with fatty infiltration. Electronically signed by: Daren Schroeder MD (01/04/2017 5:17 AM) [facility]
[2017-01-04] MEDS ORDERED: hydrALAZINE 20 MG/ML VIAL. IVP PRN (05:45)
[2017-01-04] MEDS ORDERED: ONDANSETRON PF 4 MG/2 ML VIAL. IV PRN ×2 (05:45→09:15)
--- NOTE | 2017-01-04 07:28 | RAD ---
ACUTE ABDOMEN SERIES History:epigastric pain Comparison: 12/18/2016 chest radiographs Findings:Single view of the chest and single supine and upright views of the abdomen are submitted. Heart size is stable, within normal limits given technique. There is no dependent pleural fluid, pneumothorax, lobar infiltrate. There is nonobstructive bowel gas pattern. No free air is identified. Impression: 1.No acute abnormality is identified.
--- NOTE | 2017-01-04 07:33 | EKG ---
[facility] [address] [place] [address] Test Date: 2017-01-04 Test Time: 03:23:44 Pat Name: MEREDITH FLORES Department: Room: Gender: F Incident Handler: : [id number] Requested By: JUDY PHILLIP Order Number: [id number] Reading MD: Measurements Intervals [place] Rate: 77 P: 31 MS: 144 QRS: -1 QRSD: 88 T: 21 QT: 394 QTc: 448 Interpretive Statements SINUS RHYTHM LEFTWARD AXIS QRS(T) CONTOUR ABNORMALITY CONSIDER ANTEROLATERAL MYOCARDIAL DAMAGE POSSIBLY ABNORMAL ECG RI6.01 No previous ECG available for comparison
[2017-01-04] MEDS ORDERED: FLU VACC QS2017-18 (36MOS+)/PF 0.5 ML SYRINGE. VAX IM ONE (09:00)
[2017-01-04] MEDS ORDERED: PNEUMOC CONJ VACC 23-VALENT 0.5 ML VIAL. VAX IM ONE (09:00)
[2017-01-04] MEDS ORDERED: ALBUTEROL SULFATE 8GM INHALER. IH PRN (09:15)
[2017-01-04] MEDS ORDERED: HYDROcodone/APAP 5/325MG 1 TAB TABLET PO PRN ×2 (09:15)
[2017-01-04] MEDS ORDERED: DICYCLOMINE HCL 10 MG CAPSULE PO PRN (09:15)
[2017-01-04] MEDS ORDERED: ALBUTEROL SULFATE 2.5 MG/3 ML NEBU. NEB PRN (09:30)
[2017-01-04] MEDS: levETIRAcetam 500 MG TABLET PO SCH ×2 (09:47→20:32)
[2017-01-04] MEDS: DICLOFENAC SODIUM 25 MG TABLET.DR PO SCH ×2 (09:47→20:32)
[2017-01-04] MEDS: cloNIDine HCL 0.1 MG TABLET PO SCH ×2 (09:47→14:56)
[2017-01-04] MEDS: BENZONATATE 100 MG CAPSULE. PO SCH ×3 (09:48→20:32)
[2017-01-04] MEDS: LISINOPRIL 20 MG TABLET PO SCH (09:48)
[2017-01-04] MEDS: FUROSEMIDE 20 MG TABLET PO SCH (09:49)
[2017-01-04] MEDS: POTASSIUM CHLORIDE 20 MEQ TABLET.ER. PO SCH (09:49)
[2017-01-04] MEDS: PANTOPRAZOLE 40 MG TABLET.DR. PO SCH (10:59)
--- NOTE | 2017-01-04 12:59 | PDOC1 ---
History and Physical Date of Admission Date of Admission DATE: 01/04/17 TIME: 12:55 Identification/Chief Complaint Chief Complaint abd pain Problems: Source Source: Caregiver, Chart review, Patient History of Present Illness History of Present Illness 51 y.o obese AA female, with psych hx, sees a psychiatrist admitted thru ER bec of pain control of abdominal pain, CT abd is negative but could not dc pending PAT alexus. She is delirious and saying things that are not there at ER level, Today with me she is drowsy but notes ashley umbilical pain, PE benign, I am keeping to have mental counsellor evaluate her, labs ok,. Ate breakfast and kept it down Past Medical History Cardiovascular: CHF, HTN Pulmonary: No pertinent hx, Pneumonia CENTRAL NERVOUS SYSTEM: Seizure GI: GERD Heme/Onc: No pertinent hx Hepatobiliary: No pertinent hx Psych: Anxiety, Bipolar, Depression Musculoskeletal: Osteoarthritis Rheumatologic: No pertinent hx Infectious disease: No pertinent hx Renal/: No pertinent hx Endocrine: No pertinent hx Past Surgical History Past Surgical History: Hysterectomy Family History Family History: Other Social History Smoke: No ALCOHOL: none Drugs: None Current Problem List Problem List Problems Medical Problems: (1) Accelerated hypertension Status: Acute Problems: Current Medications Current Medications Current Medications Hydralazine HCl (Apresoline Inj) 10 mg 1X ONCE IVP Last administered on 04:52; Start 01/04/17 at 05:00; Stop 01/04/17 at 05:01; Status DC Iohexol (Omnipaque 300 Mg/ml) 75 ml 1X ONCE IV Last administered on 04:54; Start 01/04/17 at 05:00; Stop 01/04/17 at 05:01; Status DC Info (Do NOT chart on this entry -- for MONITORING) 1 each PRN DAILY PRN MC SEE COMMENTS; Start 01/04/17 at 04:45; Stop 01/06/17 at 04:44 Lorazepam (Ativan) 1 mg 1X ONCE IV Last administered on 01/04/17 04:51; Start 01/04/17 at 05:00; Stop 01/04/17 at 05:01; Status DC Ondansetron HCl (Zofran) 4 mg PRN Q8HRS PRN IV NAUSEA/VOMITING Last administered on 01/04/17 08:31; Start 01/04/17 at 05:45; Stop 01/04/17 at 09 :05; Status DC Hydralazine HCl (Apresoline Inj) 10 mg PRN Q4HRS PRN IVP ELEVATED BP, SEE COMMENTS Last administered on 01/04/17 05:40; Start 01/04/17 at 05:45 Lorazepam (Ativan) 1 mg 1X ONCE IV ; Start 01/04/17 at 06:30; Stop 01/04/17 at 06:31; Status Cancel Influenza Virus Vaccine Quadrival (Fluarix Quad [id number] Syringe) 0.5 ml ONCE ONCE VAX IM Last administered on 01/04/17 08:37; Start 01/04/17 at 09:00; Stop 01/04/17 at 09:01; Status DC Pneumococcal Polyvalent Vaccine (Pneumovax 23) 0.5 ml ONCE ONCE VAX IM Last administered on 01/04/17 08:41; Start 01/04/17 at 09:00; Stop 01/04/17 at 09 :01; Status DC Ondansetron HCl (Zofran) 4 mg PRN Q6HRS PRN IV NAUSEA/VOMITING; Start at 09:15; Stop 01/05/17 at 09:14 Acetaminophen/ Hydrocodone Bitart (Lortab 5/325) 1 tab PRN Q4HRS PRN PO PAIN Last administered on 01/04/17 09:48; Start 01/04/17 at 09:15 Clonidine HCl (Catapres) 0.1 mg Q8HRS PO Last administered on 01/04/17 09:47 ; Start 01/04/17 at 09:00; Stop 01/04/17 at 14:00 Albuterol Sulfate (Ventolin Hfa) 1 puff QID PRN IH COUGH; Start 01/04/17 at 09 :15; Status UNV Benzonatate (Tessalon Perle) 100 mg TID PO Last administered on 01/04/17 09: 48; Start 01/04/17 at 09:15 Citalopram Hydrobromide (CeleXA) 20 mg HS PO ; Start 01/04/17 at 21:00 Dicyclomine HCl (Bentyl) 10 mg PRN TID PRN PO SEE COMMENTS; Start 01/04/17 at 09:15 Furosemide (Lasix) 20 mg DAILY PO Last administered on 01/04/17 09:49; Start 01/04/17 at 09:30 Acetaminophen/ Hydrocodone Bitart (Lortab 5/325) 1 tab PRN Q6HRS PRN PO PAIN; Start 01/04/17 at 09:15 Levetiracetam (Keppra) 500 mg BID PO Last administered on 01/04/17 09:47; Start 01/04/17 at 09:30 Lisinopril (Prinivil) 20 mg DAILY PO Last administered on 01/04/17 09:48; Start 01/04/17 at 09:30 Pantoprazole Sodium (Protonix) 40 mg DAILYAC PO Last administered on 10:59; Start 01/04/17 at 11:30 Diclofenac Sodium (Voltaren) 50 mg BID PO Last administered on 01/04/17 09:47 ; Start 01/04/17 at 09:30 Potassium Chloride (Klor-Con) 20 meq DAILYWBKFT PO Last administered on 09:49; Start 01/04/17 at 09:30 Albuterol Sulfate (Ventolin Neb Soln) 2.5 mg PRN QID PRN NEB SHORTNESS OF BREATH; Start 01/04/17 at 09:30 Lorazepam (Ativan) 1 mg 1X ONCE IV Last administered on 01/04/17 10:56; Start 01/04/17 at 11:00; Stop 01/04/17 at 11:01; Status DC Active Scripts Active Lasix (Furosemide) 20 Mg Tablet 1 Tab PO DAILY Prednisone 50 Mg Tablet 1 Tab PO DAILY Tessalon Perle (Benzonatate) 100 Mg Capsule 1 Cap PO TID Ventolin Hfa (Albuterol Sulfate) 8 Gm Hfa.aer.ad 1 Gm IH Q6-8HRS PRN Potassium Chloride 20 Meq Tablet.er 20 Meq PO DAILY Lisinopril 20 Mg Tablet 1 Tab PO DAILY Bentyl (Dicyclomine Hcl) 10 Mg Capsule 1 Cap PO TID PRN Take as needed for abdominal cramps. Hydrocodone-Apap 5-325 (Hydrocodone Bit/Acetaminophen) 1 Each Tablet 1 Tab PO PRN Q6HRS PRN Voltaren-Xr (Diclofenac Sodium) 100 Mg Tab.er.24h 1 Tab PO DAILY Pantoprazole Sodium 40 Mg Tablet.dr 40 Mg PO DAILYAC Keppra (Levetiracetam) 500 Mg Tablet 1 Tab PO BID Reported Celexa (Citalopram Hydrobromide) 20 Mg Tablet 20 Mg PO HS Lisinopril 10 Mg Tablet 1 Tab PO DAILY Allergies Allergies: Coded Allergies: No Known Drug Allergies (Unverified , 12/31/15) ROS Review of System limited, drowsy Physical Exam General: No acute distress, Other (drowsy) HEENT: PERRLA Lungs: Clear to auscultation, Normal air movement Heart: S1S2, RRR, no thrills, no rubs, no gallops, no murmurs Cardiovascular: S1, S2 Breasts: Normal, Rt breast nml w/o mass, Lt breast nml w/o mass, Nipples normal Abdomen: Normal bowel sounds, Soft, No tenderness, No hepatosplenomegaly, No masses Rectal Exam: not examined PELVIC: Nml ext genitalia Extremities: No clubbing, No cyanosis, No edema, Normal pulses, No tenderness/ swelling Skin: No rashes, No breakdown, No significant lesion Neuro: Normal gait, Normal speech, Strength at 5/5 X4 ext, Normal tone, Sensation intact, Cranial nerves 3-12 NL, Reflexes 2+ Psych/Mental Status: Mental status NL, Mood NL Vitals Vitals Vital Signs Date Time Temp Pulse Resp B/P (MAP) Pulse Ox O2 Delivery O2 Flow Rate FiO2 01/04/17 11:40 97 01/04/17 11:27 98.0 109 18 138/84 (102) Room Air 98.0 Labs Labs Laboratory Tests Test 01/04/17 03:25 01/04/17 03:47 01/04/17 11:45 White Blood Count 8.0 x10^3/uL (4.0-11.0) Red Blood Count 4.79 x10^6/uL (3.50-5.40) Hemoglobin 13.3 g/dL (12.0-15.5) Hematocrit 40.7 % (36.0-47.0) Mean Corpuscular Volume 85 fL (79-100) Mean Corpuscular Hemoglobin 28 pg (25-35) Mean Corpuscular Hemoglobin Concent 33 g/dL (31-37) Red Cell Distribution Width 15.7 % (11.5-14.5) Platelet Count 283 x10^3/uL (140-400) Neutrophils (%) (Auto) 65 % (31-73) Lymphocytes (%) (Auto) 26 % (24-48) Monocytes (%) (Auto) 8 % (0-9) Eosinophils (%) (Auto) 0 % (0-3) Basophils (%) (Auto) 1 % (0-3) Neutrophils # (Auto) 5.2 x10^3uL (1.8-7.7) Lymphocytes # (Auto) 2.1 x10^3/uL (1.0-4.8) Monocytes # (Auto) 0.7 x10^3/uL (0.0-1.1) Eosinophils # (Auto) 0.0 x10^3/uL (0.0-0.7) Basophils # (Auto) 0.0 x10^3/uL (0.0-0.2) Prothrombin Time 17.0 SEC (11.7-14.0) Prothromb Time International Ratio 1.5 (0.8-1.1) Sodium Level 138 mmol/L (136-145) Potassium Level 3.5 mmol/L (3.5-5.1) Chloride Level 102 mmol/L (98-107) Carbon Dioxide Level 27 mmol/L (21-32) Anion Gap 9 (6-14) Blood Urea Nitrogen 12 mg/dL (7-20) Creatinine 0.8 mg/dL (0.6-1.0) Estimated GFR (Cockcroft-Gault) 92.2 Glucose Level 109 mg/dL (70-99) Calcium Level 8.9 mg/dL (8.5-10.1) Magnesium Level 0.0 mg/dL (1.8-2.4) Total Bilirubin 0.3 mg/dL (0.2-1.0) Direct Bilirubin < 0.1 mg/dL (0.0-0.2) Aspartate Amino Transf (AST/SGOT) 20 U/L (15-37) Alanine Aminotransferase (ALT/SGPT) 32 U/L (14-59) Alkaline Phosphatase 120 U/L (46-116) Creatine Kinase 99 U/L (26-192) Creatine Kinase MB (Mass) < 0.5 ng/mL (0.0-3.6) Creatine Kinase MB Relative Index 0.5 % (0-4) Troponin I Quantitative < 0.017 ng/mL (0.000-0.055) < 0.017 ng/mL (0.000-0.055) BO-Kqe-G-Type Natriuretic Peptide 100 pg/mL (0-124) Total Protein 7.3 g/dL (6.4-8.2) Albumin 3.7 g/dL (3.4-5.0) Lipase 184 U/L (73-393) Serum Test, Qualitative Negative (NEG) Urine Collection Type Unknown Urine Color Yellow Urine Clarity Cloudy Urine pH 6.5 Urine Specific [place] >=1.030 Urine Protein Negative mg/dL (NEG-TRACE) Urine Glucose (UA) Negative mg/dL (NEG) Urine Ketones (Stick) Trace mg/dL (NEG) Urine Blood Negative (NEG) Urine Nitrite Negative (NEG) Urine Bilirubin Small (NEG) Urine Urobilinogen Dipstick 1.0 mg/dL (0.2 mg/dL) Urine Leukocyte Esterase Small (NEG) Urine RBC 3-5 /HPF (0-2) Urine WBC 5-10 /HPF (0-4) Urine Squamous Epithelial Cells Many /LPF Urine Bacteria Many /HPF (0-FEW) Urine Mucus Marked /LPF Urine Yeast Present /HPF Urine Opiates Screen Neg (NEG) Urine Methadone Screen Neg (NEG) Urine Barbiturates Neg (NEG) Urine Phencyclidine Screen Neg (NEG) Urine Amphetamine/Methamphetamine Neg (NEG) Urine Benzodiazepines Screen Neg (NEG) Urine Cocaine Screen Neg (NEG) Urine Cannabinoids Screen Neg (NEG) Urine Ethyl Alcohol Neg (NEG) Laboratory Tests Test 01/04/17 03:25 01/04/17 03:47 01/04/17 11:45 White Blood Count 8.0 x10^3/uL (4.0-11.0) Red Blood Count 4.79 x10^6/uL (3.50-5.40) Hemoglobin 13.3 g/dL (12.0-15.5) Hematocrit 40.7 % (36.0-47.0) Mean Corpuscular Volume 85 fL (79-100) Mean Corpuscular Hemoglobin 28 pg (25-35) Mean Corpuscular Hemoglobin Concent 33 g/dL (31-37) Red Cell Distribution Width 15.7 % (11.5-14.5) Platelet Count 283 x10^3/uL (140-400) Neutrophils (%) (Auto) 65 % (31-73) Lymphocytes (%) (Auto) 26 % (24-48) Monocytes (%) (Auto) 8 % (0-9) Eosinophils (%) (Auto) 0 % (0-3) Basophils (%) (Auto) 1 % (0-3) Neutrophils # (Auto) 5.2 x10^3uL (1.8-7.7) Lymphocytes # (Auto) 2.1 x10^3/uL (1.0-4.8) Monocytes # (Auto) 0.7 x10^3/uL (0.0-1.1) Eosinophils # (Auto) 0.0 x10^3/uL (0.0-0.7) Basophils # (Auto) 0.0 x10^3/uL (0.0-0.2) Prothrombin Time 17.0 SEC (11.7-14.0) Prothromb Time International Ratio 1.5 (0.8-1.1) Sodium Level 138 mmol/L (136-145) Potassium Level 3.5 mmol/L (3.5-5.1) Chloride Level 102 mmol/L (98-107) Carbon Dioxide Level 27 mmol/L (21-32) Anion Gap 9 (6-14) Blood Urea Nitrogen 12 mg/dL (7-20) Creatinine 0.8 mg/dL (0.6-1.0) Estimated GFR (Cockcroft-Gault) 92.2 Glucose Level 109 mg/dL (70-99) Calcium Level 8.9 mg/dL (8.5-10.1) Magnesium Level 0.0 mg/dL (1.8-2.4) Total Bilirubin 0.3 mg/dL (0.2-1.0) Direct Bilirubin < 0.1 mg/dL (0.0-0.2) Aspartate Amino Transf (AST/SGOT) 20 U/L (15-37) Alanine Aminotransferase (ALT/SGPT) 32 U/L (14-59) Alkaline Phosphatase 120 U/L (46-116) Creatine Kinase 99 U/L (26-192) Creatine Kinase MB (Mass) < 0.5 ng/mL (0.0-3.6) Creatine Kinase MB Relative Index 0.5 % (0-4) Troponin I Quantitative < 0.017 ng/mL (0.000-0.055) < 0.017 ng/mL (0.000-0.055) FY-Rld-Y-Type Natriuretic Peptide 100 pg/mL (0-124) Total Protein 7.3 g/dL (6.4-8.2) Albumin 3.7 g/dL (3.4-5.0) Lipase 184 U/L (73-393) Serum Test, Qualitative Negative (NEG) Urine Collection Type Unknown Urine Color Yellow Urine Clarity Cloudy Urine pH 6.5 Urine Specific [place] >=1.030 Urine Protein Negative mg/dL (NEG-TRACE) Urine Glucose (UA) Negative mg/dL (NEG) Urine Ketones (Stick) Trace mg/dL (NEG) Urine Blood Negative (NEG) Urine Nitrite Negative (NEG) Urine Bilirubin Small (NEG) Urine Urobilinogen Dipstick 1.0 mg/dL (0.2 mg/dL) Urine Leukocyte Esterase Small (NEG) Urine RBC 3-5 /HPF (0-2) Urine WBC 5-10 /HPF (0-4) Urine Squamous Epithelial Cells Many /LPF Urine Bacteria Many /HPF (0-FEW) Urine Mucus Marked /LPF Urine Yeast Present /HPF Urine Opiates Screen Neg (NEG) Urine Methadone Screen Neg (NEG) Urine Barbiturates Neg (NEG) Urine Phencyclidine Screen Neg (NEG) Urine Amphetamine/Methamphetamine Neg (NEG) Urine Benzodiazepines Screen Neg (NEG) Urine Cocaine Screen Neg (NEG) Urine Cannabinoids Screen Neg (NEG) Urine Ethyl Alcohol Neg (NEG) VTE Prophylaxis Ordered VTE Prophylaxis Devices: Yes VTE Pharmacological Prophylaxi: Yes Assessment/Plan Assessment/Plan 1. Abd pain, neg work up 2> Obesity BMI 39.5 3. PSych mental illness, schizophrenia, depression, bipolar etc Plan: Reg diet IVF to consume no more to follow MEntal health counsellor then dc tmr after psych JUDE Brower MD Jan 04, 2017 12:59
[2017-01-04] MEDS ORDERED: CITALOPRAM 20 MG TABLET. PO SCH (21:00)
[2017-01-04] MEDS ORDERED: traZODone 50 MG TABLET. PO SCH (21:00)
[2017-01-05 03:00] VITALS: BP 125/82
[2017-01-05 04:09] LABS: BASO % 1 % (0-3); EOS % 2 % (0-3); HEMATOCRIT 39.4 % (36.0-47.0); HEMOGLOBIN 12.5 g/dL (12.0-15.5); LYMPH % 38 % (24-48); MEAN CORPUSCULAR HEMOGLOBIN 27 pg (25-35); MEAN CORPUSCULAR HGB CONC 32 g/dL (31-37); MEAN CORPUSCULAR VOLUME 86 fL (79-100); MONO % 8 % (0-9); NEUT % 51 % (31-73); PLATELET COUNT 256 x10^3/uL (140-400); RED BLOOD COUNT 4.58 x10^6/uL (3.50-5.40); RED CELL DISTRIBUTION WIDTH 16.4 % (11.5-14.5); WHITE BLOOD COUNT 5.1 x10^3/uL (4.0-11.0)
[2017-01-05 04:46] LABS: CALCIUM 8.5 mg/dL (8.5-10.1); GFR 71.3; POTASSIUM 3.5 mmol/L (3.5-5.1)
[2017-01-05 07:00] VITALS: BP 131/72
[2017-01-05] MEDS: PANTOPRAZOLE 40 MG TABLET.DR. PO SCH (09:11)
[2017-01-05] MEDS: levETIRAcetam 500 MG TABLET PO SCH (09:12)
[2017-01-05] MEDS: FUROSEMIDE 20 MG TABLET PO SCH (09:13)
[2017-01-05] MEDS: POTASSIUM CHLORIDE 20 MEQ TABLET.ER. PO SCH (09:13)
[2017-01-05] MEDS: DICLOFENAC SODIUM 25 MG TABLET.DR PO SCH (09:13)
[2017-01-05] MEDS: LISINOPRIL 20 MG TABLET PO SCH (09:13)
[2017-01-05] MEDS: BENZONATATE 100 MG CAPSULE. PO SCH ×2 (10:16→14:07)
[2017-01-05 11:00] VITALS: BP 130/76
[2017-01-05] MEDS ORDERED: CITA20TA9 PO (13:27)
[2017-01-05] MEDS ORDERED: LEVE500T56 PO (13:27)
[2017-01-05] MEDS ORDERED: LURA40TA PO (13:40)
[2017-01-05] MEDS ORDERED: TRAZ50TA15 PO (13:40)
== END 2017-01-05 14:49 | disposition home or self-care (01) | DRG 392 ==
LOC: ER 03:11 → 5 SOUTH 05:00
PROVIDERS: ADMIT Internal Medicine; ATTEND Internal Medicine
DX: R10.9 Unspecified abdominal pain (principal); I11.0 Hypertensive heart disease with heart failure; F20.9 Schizophrenia, unspecified; I50.9 Heart failure, unspecified; E66.9 Obesity, unspecified; K21.9 Gastro-esophageal reflux disease without esophagitis; F41.9 Anxiety disorder, unspecified; M19.90 Unspecified osteoarthritis, unspecified site; F31.9 Bipolar disorder, unspecified; Z68.39 Body mass index [BMI] 39.0-39.9, adult; Z90.710 Acquired absence of both cervix and uterus
CPT/HCPCS: 36415; 74022; 74177; 80048; 80076; 80307; 81001; 82553; 83690; 83735; 83880; 84484; 84703; 85025; 85610; 87086; 90686; 90732; 93005; 94250; 96374; 96375; 96376; J0360; J2060; J2405; Q9967; 99285-25; G0479

== ENCOUNTER 2017-03-09 03:39 | Emergency (ER) | payer MEDICAID, SELFPAY ==
[2017-03-09 04:17] LABS: ADD MAN DIFF? NO
[2017-03-09 04:20] LABS: BASO % 1 % (0-3); EOS % 1 % (0-3); HEMATOCRIT 44.7 % (36.0-47.0); HEMOGLOBIN 14.9 g/dL (12.0-15.5); LYMPH # 1.3 x10^3/uL (1.0-4.8); LYMPH % 31 % (24-48); MEAN CORPUSCULAR HEMOGLOBIN 28 pg (25-35); MEAN CORPUSCULAR HGB CONC 33 g/dL (31-37); MEAN CORPUSCULAR VOLUME 84 fL (79-100); MONO # 0.3 x10^3/uL (0.0-1.1); MONO % 7 % (0-9); NEUT # 2.4 x10^3uL (1.8-7.7); NEUT % 59 % (31-73); PLATELET COUNT 260 x10^3/uL (140-400); RED BLOOD COUNT 5.29 x10^6/uL (3.50-5.40); RED CELL DISTRIBUTION WIDTH 14.8 % (11.5-14.5); WHITE BLOOD COUNT 4.1 x10^3/uL (4.0-11.0)
[2017-03-09] MEDS ORDERED: CONTRAST GIVEN MC ×2 (04:30)
[2017-03-09 04:34] LABS: ANION GAP 8 (6-14); BLOOD UREA NITROGEN 10 mg/dL (7-20); BUN/CREATININE RATIO 14 (6-20); CALCIUM 9.9 mg/dL (8.5-10.1); CARBON DIOXIDE 28 mmol/L (21-32); CHLORIDE 101 mmol/L (98-107); CREATININE 0.7 mg/dL (0.6-1.0); GFR 107.2; GLUCOSE 128 mg/dL (70-99); POTASSIUM 3.6 mmol/L (3.5-5.1); SODIUM 137 mmol/L (136-145)
[2017-03-09 04:40] LABS: ALBUMIN 4.1 g/dL (3.4-5.0); ALK PHOS 112 U/L (46-116); ALT (SGPT) 26 U/L (14-59); AST (SGOT) 22 U/L (15-37); TOTAL BILIRUBIN 0.6 mg/dL (0.2-1.0); TOTAL PROTEIN 8.2 g/dL (6.4-8.2)
[2017-03-09 04:44] LABS: TROPONINI < 0.017 ng/mL (0.000-0.055)
[2017-03-09] MEDS: IOHEXOL 300 MG/ML 100ML VIAL. IV ×2 (04:52)
== END 2017-03-09 06:25 | disposition home or self-care (01) ==
LOC: ER 03:39
DX: R07.89 Other chest pain (principal); F41.9 Anxiety disorder, unspecified; F31.9 Bipolar disorder, unspecified; I11.0 Hypertensive heart disease with heart failure; I50.9 Heart failure, unspecified; F20.9 Schizophrenia, unspecified; Z90.710 Acquired absence of both cervix and uterus
CPT/HCPCS: 36415; 71045; 71275; 80053; 84484; 85025; 93005; 99285-25; Q9967